=== PATIENT | male | born 2000 | race Hispanic/Latino ===

== ENCOUNTER 2022-11-19 10:59 | Emergency (ER) | payer SELFPAY ==
[2022-11-19] MEDS ORDERED: TDAP (DIPHTH,PERTUSS(ACELL),TET VAC) 0.5 ML VIAL IMVAC ONE (11:20)
[2022-11-19] MEDS ORDERED: LIDOCAINE 1% MPF 5 ML VIAL ONE (11:20)
--- NOTE | 2022-11-19 11:49 | RAD REPORT ---
EXAM DESCRIPTION: CT - Head C Spine Mpr Wo Con - 11/19/2022 11:26 am CLINICAL HISTORY: Head and neck injury status post trauma. Head and neck pain COMPARISON: None. TECHNIQUE: Computed axial tomography of the head and cervical spine was obtained. Sagittal and coronal reconstruction was performed. All CT scans are performed using dose optimization technique as appropriate and may include automated exposure control or mA/KV adjustment according to patient size. FINDINGS: An intracranial bleed is not seen. The ventricles are normal in caliber. No significant hypodensity within the brain. An extra-axial fluid collection is not noted. Fluid within the visualized sinuses and mastoids is not seen A cervical fracture is not visualized. No dislocation is noted. IMPRESSION: No acute intracranial abnormality is seen. A cervical fracture is not visualized. If the patient continues to have symptoms to suggest intracranial /spinal cord pathology then MRI wou ld be recommended
--- NOTE | 2022-11-19 12:11 | ER ---
Nurse's Notes [facility] Name: Gigi Limon Age: 22 yrs Sex: Male : 2000 Arrival Date: 11/19/2022 Time: 10:59 Bed 19 Private MD: Diagnosis: Laceration without foreign body of scalp Presentation: 11/19 11:01 Chief complaint: EMS states: patient was working and a pole fell striking him in the ko1 head, he was wearing a hard hat but it was knocked off. There is a laceration to the right side of the head, bleeding is controlled. Coronavirus screen: At this time, the client does not indicate any symptoms associated with coronavirus-19. Ebola Screen: No symptoms or risks identified at this time. Initial Sepsis Screen: Does the patient meet any 2 criteria? No. Patient's initial sepsis screen is negative. Does the patient have a suspected source of infection? No. Patient's initial sepsis screen is negative. Risk Assessment: Do you want to hurt yourself or someone else? Patient reports no desire to harm self or others. Onset of symptoms was November 19, 2022. Care prior to arrival: Bleeding of injury controlled. Injury dressed. Mechanism of Injury: Laceration sustained at work, while working, from blunt trauma. 11:01 Method Of Arrival: EMS: [facility] ko1 11:01 Acuity: SUSANA 3 ko1 Triage Assessment: 11:04 General: Appears in no apparent distress. comfortable, Behavior is calm, cooperative, ko1 appropriate for age. Pain: Complains of pain in right side of head. 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 - Social history:: Smoking status: Patient denies any tobacco usage or history of. Screenin:15 [facility] ED Fall Risk Assessment (Adult) History of falling in the last 3 months, ko1 including since admission No falls in past 3 months (0 pts) Confusion or Disorientation No (0 pts) Intoxicated or Sedated Yes (3 pts) Impaired Gait No (0 pts) Mobility Assist Device Used No (0 pt) Altered Elimination No (0 pt) Score/Fall Risk Level 0 - 2 = Low Risk Oriented to surroundings, Maintained a safe environment, Educated pt \T\ family on fall prevention, incl call for assistance when getting out of bed, Assessed \T\ reinforced patient's understanding of fall precautions, Provided non-skid footwear, Hourly rounding (assess needs \T\ fall precautionary measures) done, Used ambulatory aids as needed (educated on \T\ assisted with), Used gait belt as appropriate. Abuse screen: Denies threats or abuse. Denies injuries from another. Nutritional screening: No deficits noted. Tuberculosis screening: No symptoms or risk factors identified. Assessment: 11:15 Neuro: No deficits noted. Cardiovascular: No deficits noted. Respiratory: No deficits ko1 noted. GI: No deficits noted. : No deficits noted. EENT: No deficits noted. Derm: No deficits noted. Musculoskeletal: No deficits noted. Injury Description: Laceration sustained to right side of the back of head. Vital Signs: 11:01 BP 116 / 57; Pulse 97; Resp 16; Temp 97; Pulse Ox 98% ; ko1 12:18 BP 124 / 78; Pulse 89; Resp 16; Pulse Ox 99% ; ko1 ED Course: 11:01 Patient arrived in ED. ko1 11:01 Lenard Kwan MD is Attending Physician. rt 11:01 Meryl Walter, JORDI is Primary Nurse. ko1 11:04 Triage completed. ko1 11:04 Arm band placed on right wrist. Patient placed in an exam room, on a stretcher, on ko1 pulse oximetry, Patient notified of wait time. 11:15 Patient has correct armband on for positive identification. Bed in low position. Call ko1 light in reach. Side rails up X 1. Provided Education on: na. Pulse ox on. NIBP on. Door closed. Noise minimized. Lights dimmed. 11:26 CT Head C Spine In Process Unspecified. EDMS 12:18 No provider procedures requiring assistance completed. Patient did not have IV access ko1 during this emergency room visit. Wound care: to laceration was cleaned with Hibiclens. Administered Medications: 11:32 Drug: Tetanus-Diphtheria Toxoid IM Adult 0.5 ml IM once; Provide Vaccine Information ko1 Statement (VIS). 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 Questions and/or concerns ko1 addressed. VIS edition date: November 19, 2022. Outcome: 12:10 Discharge ordered by . rt 12:18 Discharged to home ambulatory, ko1 12:18 Condition: stable 12:18 Discharge instructions given to patient, Instructed on discharge instructions, follow up and referral plans. Demonstrated understanding of instructions, follow-up care, 12:19 Patient left the ED. ko1 Signatures: Dispatcher [employer] EDMS Meryl Walter, RN RN ko1 Lenard Kwan MD MD rt
--- NOTE | 2022-11-19 12:11 | EDPHYS ---
Physician Documentation [facility] Name: Gigi Limon Age: 22 yrs Sex: Male : 2000 Arrival Date: 11/19/2022 Time: 10:59 Bed 19 Private MD: ED Physician Lenard Kwan HPI: 11/19 11:02 This 22 yrs old Male presents to ER via Unassigned with complaints of Head injury. rt 11:02 Patient presents to the ED with head injury. 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 He denies loss of consciousness. There is reported laceration. Denies neck pain, acute complaints, symptoms are mild in severity, aching nature, nonradiating, no other aggravating alleviating factors. Historical: - Allergies: 11:04 No Known Allergies; ko1 - Home Meds: 11:04 None [Active]; ko1 - PMHx: 11:04 None; ko1 - Immunization history:: Adult Immunizations unknown. - Social history:: Smoking status: Patient denies any tobacco usage or history of. ROS: 11:02 Constitutional: Negative for fever, chills, and weight loss, Neck: Negative for injury, rt pain, and swelling, Cardiovascular: Negative for chest pain, palpitations, and edema, Respiratory: Negative for shortness of breath, cough, wheezing, and pleuritic chest pain, Abdomen/GI: Negative for abdominal pain, nausea, vomiting, diarrhea, and constipation, Back: Negative for injury and pain, MS/Extremity: Negative for injury and deformity, Neuro: Negative for headache, weakness, numbness, tingling, and seizure, Psych: Negative for depression, anxiety, suicide ideation, homicidal ideation, and hallucinations, 11:02 Skin: Positive for laceration(s), Negative for abrasions, Exam: 11:02 Constitutional: This is a well developed, well nourished patient who is awake, alert, rt and in no acute distress. Chest/axilla: Normal chest wall appearance and motion. Nontender with no deformity. No lesions are appreciated. Cardiovascular: Regular rate and rhythm with a normal S1 and S2. No gallops, murmurs, or rubs. Normal PMI, no JVD. No pulse deficits. Respiratory: Lungs have equal breath sounds bilaterally, clear to auscultation and percussion. No rales, rhonchi or wheezes noted. No increased work of breathing, no retractions or nasal flaring. Abdomen/GI: Soft, non-tender, with normal bowel sounds. No distension or tympany. No guarding or rebound. No evidence of tenderness throughout. MS/ Extremity: Pulses equal, no cyanosis. Neurovascular intact. Full, normal range of motion. Neuro: Awake and alert, GCS 15, oriented to person, place, time, and situation. Cranial nerves II-XII grossly intact. Motor strength 5/5 in all extremities. Sensory grossly intact. Cerebellar exam normal. Normal gait. Psych: Awake, alert, with orientation to person, place and time. Behavior, mood, and affect are within normal limits. 11:02 Head/face: 2 cm laceration to the right parietal region, no active bleeding, no foreign bodies identified, no other external evidence of trauma.. 11:02 Neck: No midline tenderness, no step-off, Vital Signs: 11:01 BP 116 / 57; Pulse 97; Resp 16; Temp 97; Pulse Ox 98% ; ko1 12:18 BP 124 / 78; Pulse 89; Resp 16; Pulse Ox 99% ; ko1 MDM: 11:01 Patient medically screened. rt 12:13 Differential diagnosis: Contusion of Hematoma on Laceration of Intracranial bleed-. rt Data reviewed: vital signs, nurses notes, radiologic studies. Independent interpretation of the following test(s) in the Emergency Department CT Scan: My interpretation is No hemorrhage seen on interpretation of x-ray images. Counseling: I had a detailed discussion with the patient and/or guardian regarding the historical points, exam findings, and any diagnostic results supporting the discharge/admit diagnosis, radiology results. ED course: Patient declines repair of the laceration. Wishes to leave, informed patient that he return if he wishes to have a scalp laceration repaired.. 11/19 11:02 Order name: CT Head C Spine; Complete Time: 12:06 rt 11/19 11:02 Order name: Wound Care; Complete Time: 11:06 rt Administered Medications: 11:32 Drug: Tetanus-Diphtheria Toxoid IM Adult 0.5 ml IM once; Provide Vaccine Information ko1 Statement (VIS). {[employer]: [employer]; Exp: Sat Jul 03 2024; Lot #: [id number]; Series: 1 of 1; Patient Consent: Obtained; Date/Time: ; Source Name: Gigi Limon; Source Relationship: Self; Address Information: [address], [facility] [address]; Education: Provided; VIS Presented Date: ; VIS Publication: Tetanus/Diphtheria (Td) Vaccine VIS 05/21/2016 (historic)} Route: IM; Site: right deltoid; 12:14 Not Given (Patient Refused): lidocaine(1 %) 5 ml 5 ml Infiltration once; to bedside ko1 Disposition Summary: 11/19/22 12:10 Discharge Ordered Notes: Location: Home rt Problem: new rt Symptoms: are unchanged rt Condition: Stable rt Diagnosis - Laceration without foreign body of scalp rt Followup: rt - With: Private Physician - When: Today - Reason: Discharge Instructions: - Discharge Summary Sheet rt - Laceration Care, Adult rt Forms: - Medication Reconciliation Form rt - Thank You Letter rt - Antibiotic Education rt - Prescription Opioid Use rt - Patient Portal Instructions rt - Leadership Thank You Letter rt Signatures: Dispatcher [employer] Meryl Correa, JORDI RN ko1 Lenard Kwan MD MD rt
[2022-11-19 12:29] VITALS: BP 124/78; O2SAT 99
== END 2022-11-19 12:19 | disposition home or self-care (01) ==
LOC: ER 10:59
DX: S01.01XA Laceration without foreign body of scalp, initial encounter (principal); Z23 Encounter for immunization
CPT/HCPCS: 70450; 72125; 90471; 99284; J2001